=== PATIENT | female | born 1990 | race Two or more races ===

== ENCOUNTER 2016-11-10 17:27 | Emergency (ER) | payer MEDICAID ==
[~2016-11-10] VITALS: Ht 157.5 cm; Wt 91.2 kg
[2016-11-10] MEDS ORDERED: FAMOTIDINE 20 MG/2 ML ONE (18:27)
[2016-11-10] MEDS ORDERED: ONDANSETRON 2MG/ML, 2ML ONE (18:27)
[2016-11-10] MEDS ORDERED: SODIUM CHLORIDE FLUSH 10ML SYR IVF ONE (18:30)
[2016-11-10] MEDS ORDERED: SODIUM CHLORIDE 0.9% 1,000ML IVBOLUS ONE (18:30)
[2016-11-10] MEDS ORDERED: ONDANSETRON 2MG/ML, 2ML IVPush ONE (18:30)
[2016-11-10] MEDS ORDERED: FAMOTIDINE 20 MG/2 ML IVP ONE (18:30)
[2016-11-10 19:08] LABS: PATH.CAST-FLAG NOT PRESENT; SPERM-FLAG NOT PRESENT; SRC-FLAG NOT PRESENT; XTAL-FLAG NOT PRESENT; YLC-FLAG NOT PRESENT
[2016-11-10 19:13] LABS: BLOOD UREA NITROGEN 9 mg/dL (7-18)
[2016-11-10 19:19] LABS: ASPARTATE AMINO TRANSFERASE 20 U/L (15-37)
[2016-11-10] MEDS ORDERED: CEPHALEXIN 250 MG/5 ML, ORAL SUSP PO ONE (20:30)
[2016-11-10] MEDS ORDERED: CEPHALEXIN 500 MG CAPSULE ONE (20:41)
[2016-11-10 21:13] VITALS: BP 137/81
== END 2016-11-10 21:49 | disposition home or self-care (01) ==
LOC: ED 19:31
DX: Z32.01 Encounter for pregnancy test, result positive (principal); K29.00 Acute gastritis without bleeding; N30.00 Acute cystitis without hematuria
CPT/HCPCS: 36415; 76700; 76856; 80053; 81001; 83690; 84702; 84703; 85025; 86677; 87086; 96361; 96374; 96375; 99285; J2405; J7030; S0028